=== PATIENT | male | born 1975 | race Caucasian/White ===

== ENCOUNTER 2020-04-21 06:16 | Outpatient (REF) | payer OTHER, SELFPAY ==
[2020-04-21 11:40] LABS: Alanine Aminotransferase 16 U/L (0-40); Albumin Level 4.2 g/dL (3.5-5.0); Alkaline Phosphatase 72 U/L (39-117); Anion Gap 12 (12-20); Aspartate Amino Transferase 15 U/L (5-37); Bilirubin Total 0.5 mg/dL (0.0-1.0); Blood Urea Nitrogen 19 mg/dL (9-16); Calcium 8.8 mg/dL (8.4-10.2); Carbon Dioxide 28 mmol/L (22-29); Chloride 105 mmol/L (96-108); Cholesterol 168 mg/dL; Estimated Glomerular Filt Rate > 60; Glucose Fasting 84 mg/dL (60-99); HDL Cholesterol 42 mg/dL; LDL Cholesterol Calculated 97 mg/dl; Potassium 4.8 mmol/l (3.3-5.1); Sodium 140 mmol/L (135-145); Total Protein 6.8 g/dL (6.5-8.0); Triglycerides 146 mg/dL
[2020-04-21 12:02] LABS: TSH reflex Free T4 0.73 mIU/mL (0.32-4.0)
== END 2020-04-21 06:17 | disposition home or self-care (01) ==
LOC: HO.HMGCLDS 06:16
PROVIDERS: PCP Nurse Practitioner Family; Visit Provider Nurse Practitioner Family
DX: Z00.00 Encounter for general adult medical examination without abnormal findings (principal); Z13.220 Encounter for screening for lipoid disorders; Z13.29 Encounter for screening for other suspected endocrine disorder
CPT/HCPCS: 80053; 80061; 84443

== ENCOUNTER 2021-04-30 08:41 | Outpatient (REF) | payer OTHER, SELFPAY ==
[2021-04-30 11:25] LABS: Appearance Urine CLEAR; Color Urine YELLOW; Glucose Urine UA NEG (NEG); Leukocyte Esterase Urine NEG (NEG); Nitrite Urine NEG (NEG); Specific Gravity - Urine 1.025 (1.005-1.025); Urine Blood NEG (NEG); Urine Ketones NEG (NEG); Urine Protein NEG (NEG-TRACE)
[2021-04-30 12:09] LABS: Alanine Aminotransferase 21 U/L (0-40); Albumin Level 4.4 g/dL (3.5-5.0); Alkaline Phosphatase 61 U/L (39-117); Anion Gap 11 (12-20); Aspartate Amino Transferase 21 U/L (5-37); Bilirubin Total 0.8 mg/dL (0.0-1.0); Blood Urea Nitrogen 13 mg/dL (9-16); Calcium 9.4 mg/dL (8.4-10.2); Carbon Dioxide 26 mmol/L (22-29); Chloride 107 mmol/L (96-108); Cholesterol 175 mg/dL; Estimated Glomerular Filt Rate > 60; Glucose Fasting 99 mg/dL (60-99); HDL Cholesterol 47 mg/dL; LDL Cholesterol Calculated 114 mg/dl; Potassium 4.4 mmol/L (3.3-5.1); Sodium 140 mmol/L (135-145); TSH reflex Free T4 1.51 uIU/mL (0.32-4.0); Total Protein 7.1 g/dL (6.5-8.0); Triglycerides 72 mg/dL
== END 2021-04-30 08:42 | disposition home or self-care (01) ==
LOC: HO.HMGCLDS 08:41
PROVIDERS: PCP Nurse Practitioner Family; Visit Provider Nurse Practitioner Family
DX: Z00.00 Encounter for general adult medical examination without abnormal findings (principal); Z13.29 Encounter for screening for other suspected endocrine disorder; Z13.220 Encounter for screening for lipoid disorders; Z23 Encounter for immunization
CPT/HCPCS: 36415; 80053; 80061; 81003; 84443

== ENCOUNTER 2021-11-28 09:17 | Outpatient (REF) | payer OTHER, SELFPAY ==
--- NOTE | ~2021-11-28 | XR_ITS ---
EXAMINATION: XR ABDOMEN KUB CLINICAL INDICATION: Constipation, unspecified COMPARISON: None TECHNIQUE: AP view of the abdomen. FINDINGS: The bowel gas pattern is nonobstructive. There is moderate right colonic fecal material but mild fecal material observed in the left colon. No appreciable abnormal calcifications. Pelvic phleboliths observed. There are minimal spondylitic changes of the lumbar spine. Sacrum intact. XR/XR KUB IMPRESSION: Nonobstructive bowel gas pattern. Moderate right colonic fecal material but mild left colonic fecal material noted.
[2021-11-28 11:28] LABS: MANUAL DIFF FLAG NO
[2021-11-28 11:34] LABS: Basophils Percent Auto 0.3 % (0-2); Hematocrit 38.3 % (42.0-52.0); Hemoglobin 13.4 g/dl (14.0-18.0); Imm Gran Abs Auto 0.11 X10*3/uL (0.00-0.03); Imm Gran Pct Auto 0.8 % (0.0-0.4); Lymphocytes Absolute Auto 0.8 X10*3/uL (1.2-4.9); Lymphocytes Percent Auto 5.7 % (20-40); Mean Corpuscular Hemoglobin 30.7 pg (27.0-33.0); Mean Corpuscular Volume 87.6 fL (80.0-98.0); Mean Platelet Volume 9.7 fL (9.4-12.4); Monocytes Absolute Auto 0.8 X10*3/uL (0.1-1.2); Monocytes Percent Auto 5.9 % (2-11); Neutrophils Absolute Auto 11.9 x10*3/uL (2.0-8.3); Neutrophils Percent Auto 87.3 % (45-73); Platelet Count 269 X10*3/uL (160-400); Red Blood Count 4.37 X10*6/uL (4.60-5.80); Red Cell Distribution Width 12.2 % (11.0-16.0); White Blood Count 13.6 X10*3/uL (4.8-10.8)
[2021-11-28 12:13] LABS: Alanine Aminotransferase 25 U/L (0-40); Albumin Level 4.3 g/dL (3.5-5.0); Alkaline Phosphatase 55 U/L (39-117); Anion Gap 13 (12-20); Aspartate Amino Transferase 19 U/L (5-37); Bilirubin Total 1.4 mg/dL (0.0-1.0); Blood Urea Nitrogen 10 mg/dL (9-16); Calcium 9.3 mg/dL (8.4-10.2); Carbon Dioxide 26 mmol/L (22-29); Chloride 101 mmol/L (96-108); Estimated Glomerular Filt Rate > 60; Glucose Random 141 mg/dL (60-115); Lipase 17 U/L (8-78); Potassium 3.8 mmol/L (3.3-5.1); Sodium 136 mmol/L (135-145)
[2021-11-28 12:32] LABS: Influenza A PCR NEGATIVE (Negative); Influenza B PCR NEGATIVE (Negative); Resp Syncy Virus RNA Qual PCR NEGATIVE (Negative); SARS COV2 PCR INHOUSE NEGATIVE (Negative)
== END 2021-11-28 09:18 | disposition home or self-care (01) ==
LOC: HO.HMGCX 09:17
PROVIDERS: PCP Nurse Practitioner Family; Visit Provider Physician Assistant
DX: R10.9 Unspecified abdominal pain (principal); R11.2 Nausea with vomiting, unspecified; K59.00 Constipation, unspecified; B34.9 Viral infection, unspecified; Z20.822 Contact with and (suspected) exposure to COVID-19
CPT/HCPCS: 0241U; 36415; 74018; 80053; 83690; 85025

== ENCOUNTER 2021-11-29 04:30 | Emergency (ER) | payer OTHER, SELFPAY ==
--- NOTE | ~2021-11-29 | CT_ITS ---
EXAMINATION: CT ABDOMEN AND PELVIS WITHOUT CONTRAST CLINICAL INFORMATION: Bilateral lower abdomen pain COMPARISON: None TECHNIQUE: Multidetector volumetric imaging was performed from the superior aspect of the liver through the pubic symphysis. Sagittal and coronal reformatted images were obtained on the technologist's workstation. This CT examination was performed using dose optimization techniques as appropriate, variously including the following: *Automated exposure control *Adjustment of mA and/or kV according to patient size (this includes techniques or standardized protocols for targeted exams where dose is matched to indication/reason for exam; i.e. extremities or head) *Use of iterative reconstruction technique DLP: 715 mGy-cm FINDINGS: LUNG BASES: The visualized lung bases are unremarkable. LIVER, GALLBLADDER, AND BILIARY TREE: The liver is normal in size, shape, and attenuation. No focal hepatic lesion or biliary ductal dilatation is identified. The gallbladder is unremarkable with no evidence of radiopaque gallstones, gallbladder wall thickening, or obvious pericholecystic inflammatory changes. PANCREAS: Unremarkable. SPLEEN: Enlarged, measuring 15.4 cm in the axial plane. Scattered calcified granulomas are noted. ADRENAL GLANDS: Unremarkable. KIDNEYS AND URETERS: The kidneys are normal in size, shape, and attenuation. Punctate calculus noted in the upper left kidney. No hydronephrosis, hydroureter, or obstructing calculi seen. No perinephric stranding. BLADDER: Minimally distended and grossly unremarkable. GASTROINTESTINAL TRACT: No evidence of bowel obstruction. There are diverticula in the descending and sigmoid colon. There is focal pericolonic inflammation adjacent to a diverticulum in the proximal sigmoid colon, most consistent with diverticulitis. No pericolonic abscess, free fluid, or free air identified. The appendix is unremarkable. ABDOMINAL WALL: No significant hernia is appreciated. LYMPH NODES: Normal. VASCULAR: Unremarkable. PELVIC VISCERA: Unremarkable. OSSEOUS STRUCTURES: Mild endplate osteophytes noted in the spine. Bilateral L5 pars defects. CT/CT abdomen pelvis wo con IMPRESSION: 1. Diverticulitis of the proximal sigmoid colon. Correlation with recent or followup colonoscopy is advised to exclude an underlying mass lesion. 2. Splenomegaly.
--- NOTE | 2021-11-29 04:50 | ECG_ITS ---
Test Reason : ABD PAIN Blood Pressure : / mmHG Vent. Rate : 094 BPM Atrial Rate : 094 BPM P-R Int : 128 ms QRS Dur : 086 ms QT Int : 360 ms P-R-T Axes : 063 078 039 degrees QTc Int : 450 ms Normal sinus rhythm Normal ECG No previous ECGs available Referred By: Alexandrea Schuster Electronically Signed By:Sergey Ma
[2021-11-29 04:51] VITALS: BP 141/91; PULSE 104; RESP 18; TEMP 36.4; O2SAT 96; BMI 30.2
[2021-11-29 05:06] LABS: Basophils Percent Auto 0.3 % (0-2); Eosinophils Percent Auto 0.2 % (0-4); Hematocrit 41.2 % (42.0-52.0); Hemoglobin 14.3 g/dl (14.0-18.0); Imm Gran Abs Auto 0.04 X10*3/uL (0.00-0.03); Imm Gran Pct Auto 0.5 % (0.0-0.4); Lymphocytes Percent Auto 11.8 % (20-40); MANUAL DIFF FLAG NO; Mean Corpuscular HGB Conc 34.7 g/dl (31.0-36.0); Mean Corpuscular Hemoglobin 30.8 pg (27.0-33.0); Mean Corpuscular Volume 88.8 fL (80.0-98.0); Mean Platelet Volume 8.8 fL (9.4-12.4); Monocytes Absolute Auto 0.6 X10*3/uL (0.1-1.2); Monocytes Percent Auto 7.3 % (2-11); Neutrophils Percent Auto 79.9 % (45-73); Platelet Count 270 X10*3/uL (160-400); Red Blood Count 4.64 X10*6/uL (4.60-5.80); Red Cell Distribution Width 12.7 % (11.0-16.0); White Blood Count 8.7 X10*3/uL (4.8-10.8)
[2021-11-29 05:25] LABS: Troponin-I High Sensitivity < 3.5 ng/L (<3.5-35.0)
[2021-11-29 05:26] LABS: Alanine Aminotransferase 29 U/L (0-40); Albumin Level 4.4 g/dL (3.5-5.0); Alkaline Phosphatase 61 U/L (39-117); Anion Gap 12 (12-20); Aspartate Amino Transferase 24 U/L (5-37); Bilirubin Direct 0.5 mg/dL (0.0-0.5); Bilirubin Total 1.2 mg/dL (0.0-1.0); Blood Urea Nitrogen 15 mg/dL (9-16); Calcium 9.4 mg/dL (8.4-10.2); Carbon Dioxide 27 mmol/L (22-29); Chloride 104 mmol/L (96-108); Creatinine Clr Calc Pharmacy 92.2; Estimated Glomerular Filt Rate > 60; Glucose Random 133 mg/dL (60-115); Lipase 21 U/L (8-78); Potassium 4.1 mmol/L (3.3-5.1); Sodium 139 mmol/L (135-145); Total Protein 7.4 g/dL (6.5-8.0)
--- NOTE | 2021-11-29 05:49 | ED_ITS ---
HPI - Abdominal Pain General Chief Complaint: Abdominal Pain Stated Complaint: stomach pain sent by pcp Time Seen by Provider: 11/29/21 04:48 Source: patient Mode of arrival: ambulatory Limitations: no limitations History of Present Illness HPI narrative: Patient comes to emergency room complaining of 1 week of intermittent abdominal pain, nausea, vomiting and constipation. Patient complaining of intermittent ch ills, no fever. Patient went to a walk-in clinic yesterday, was told that his white blood cell count was elevated, still having left lower quadrant pain, was instructed to come to the emergency room for further evaluation. At this time, patient states that he feels fairly well, but if he pushes his specially on the left lower quadrant of his abdomen it hurts quite a bit. Related Data Previous Rx's Medication Instructions Recorded acetaminophen 650 mg 650 mg PO Q8H PRN pain #20 tabs 11/29/21 tablet,extended release ciprofloxacin HCl 500 mg tablet 500 mg PO BID #20 tabs 11/29/21 metronidazole 250 mg tablet 250 mg PO BID #20 tabs 11/29/21 Allergies Allergy/AdvReac Type Severity Reaction Status Date / Time No Known Allergies Allergy Verified 11/28/21 08:55 [No Known Allergies*] Review of Systems Review of Systems Constitutional : No Weight loss, No Fever, No Chills, No Night Sweats, No Fatigue, No Malaise ENT/Mouth : No Hearing loss, No Ear Pain, No Nasal Congestion, No Sinus Pain, No Hoarseness, No sore throat, No Rhinorrhea, No Swallowing Difficulty Eyes: No Eye Pain, No Swelling, No Redness, No Foreign Body, No Discharge, No Vision Changes Cardiovascular : No Chest Pain, No SOB, No Dyspnea on Exertion, No Orthopnea, No Edema, No Palpitations Respiratory : No Cough, No Sputum, No Wheezing, No Smoke Exposure, No Dyspnea Gastrointestinal : Complaining of nausea and vomiting couple of days ago, no diarrhea, complaining of constipation, intermittent left lower quadrant pain. Genitourinary : no irregular bleeding, No Dysuria, No Urinary Frequency, No Hematuria, No Urinary Incontinence, No Urgency, No Flank Pain, No Urinary Flow Changes, No Hesitancy Musculoskeletal : No joint pain, No Myalgias, No Joint Swelling Skin : No Skin Lesions, No rash Neuro : No Weakness, No Numbness, No Paresthesias, No Loss of Consciousness, No Dizziness, No Headache Psych : No Anxiety/Panic, No Depression, No SI/HI/AH/VH, No Social Issues, Heme/Lymph: No Bruising, No Bleeding,No Lymphadenopathy Endocrine : No Polyuria, No Polydipsia, No Temperature Intolerance [facility] Past Medical History Surgical History History of torn meniscus of right knee Family History Family History Father No problems noted. Mother No problems noted. Brother No problems noted. Brother No problems noted. Sister No problems noted. Sister No problems noted. Son No problems noted. Daughter No problems noted. Maternal Grandfather Unknown family medical history Maternal Grandmother Unknown family medical history Paternal Grandfather Unknown family medical history Paternal Grandmother Unknown family medical history Social History Social History Housing: House Alcohol intake: former Patient Tobacco Use Status: Never used Tobacco e-Cigarette/Vaping Use: Never Used Advance Directives: No Current occupational status: employed Physical Exam ED Vital Signs: Vital Signs - 24 hr 11/29/21 04:51 Temperature 97.6 F Pulse Rate 104 H Respiratory Rate 18 Blood Pressure 141/91 H Pulse Oximetry 96 Oxygen Delivery Method Room Air BMI result Body Mass Index 30.2 Const Other: Appearance: Alert. Oriented X3. No acute distress. Well-appearing Eyes: Pupils equal, round and reactive to light. ENT: Pharynx normal. Neck: Normal inspection. Neck supple. No lymph nodes noted. No crepitus CVS: Normal heart rate and rhythm. Pulses normal. Normal S1 and S2 Respiratory: No respiratory distress. Breath sounds normal. No Wheezing. No rales Abdomen: Soft , nondistended, mildly tender in the left lower quadrant Skin: Skin warm and dry. Normal skin color. Normal skin turgor. Extremities: No lower extremity edema. No Lacerations. No Rash Neuro: Oriented X 3. No motor deficit. No sensory deficit. Moving all extremities. No slurred speech. CN 2 through 12 grossly intact Psych: calm, cooperative, normal affect Course Course Course Narrative: Patient had a KUB yesterday, was unremarkable. Patient's white blood cell count yesterday was 13.6, today 8.7 without any treatment. Likely reactive leukocytosis. Today the Troponin negative, EKG negative. CT scan pending. I discussed the CT scan with the patient, patient does have diverticulitis. Patient has minimal pain at this time, patient can go home, given the 1st dose of levofloxacin and metronidazole p.o.. I discussed with patient that if he has any increased abdominal pain, he needs to return to the emergency room. MDM - Abdominal Pain Lab Data Result diagrams: 11/29/21 05:02 11/29/21 05:02 Labs: Lab Results 11/29/21 11/29/21 11/29/21 Range/Units 05:02 05:02 05:02 WBC 8.7 (4.8-10.8) X10*3/uL RBC 4.64 (4.60-5.80) X10*6/uL Hgb 14.3 (14.0-18.0) g/dl Hct 41.2 L (42.0-52.0) % MCV 88.8 (80.0-98.0) fL MCH 30.8 (27.0-33.0) pg MCHC 34.7 (31.0-36.0) g/dl RDW 12.7 (11.0-16.0) % Plt Count 270 (160-400) X10*3/uL MPV 8.8 L (9.4-12.4) fL Immature Gran % (Auto) 0.5 H (0.0-0.4) % Neut % (Auto) 79.9 H (45-73) % Lymph % (Auto) 11.8 L (20-40) % [place] % (Auto) 7.3 (2-11) % Eos % (Auto) 0.2 (0-4) % Baso % (Auto) 0.3 (0-2) % Lymph # (Auto) 1.0 L (1.2-4.9) X10*3/uL [place] # (Auto) 0.6 (0.1-1.2) X10*3/uL Eos # (Auto) 0.0 (0.0-0.4) X10*3/uL Baso # (Auto) 0.0 (0.0-0.2) X10*3/uL Abs Immat Gran (auto) 0.04 H (0.00-0.03) X10*3/uL Absolute Neuts (auto) 7.0 (2.0-8.3) x10*3/uL Absolute Nucleated RBC 0.000 (0.0-0.012) X10*3/uL Nucleated RBC % (auto) 0.0 (0.0-0.2) /100WBC Sodium 139 (135-145) mmol/L Potassium 4.1 (3.3-5.1) mmol/L Chloride 104 (96-108) mmol/L Carbon Dioxide 27 (22-29) mmol/L Anion Gap 12 (12-20) BUN 15 (9-16) mg/dL Creatinine 1.16 (0.5-1.4) mg/dL Estim Creat Clear Calc 92.2 Estimated GFR > 60 Random Glucose 133 H (60-115) mg/dL Calcium 9.4 (8.4-10.2) mg/dL Total Bilirubin 1.2 H (0.0-1.0) mg/dL Direct Bilirubin 0.5 (0.0-0.5) mg/dL AST 24 (5-37) U/L ALT 29 (0-40) U/L Alkaline Phosphatase 61 (39-117) U/L Troponin I High Sens < 3.5 (<3.5-35.0) ng/L Total Protein 7.4 (6.5-8.0) g/dL Albumin 4.4 (3.5-5.0) g/dL Lipase 21 (8-78) U/L Imaging Data CT scan - abdomen: Radiologist's impression: FINDINGS: LUNG BASES: The visualized lung bases are unremarkable.? LIVER, GALLBLADDER, AND BILIARY TREE: The liver is normal in size, shape, and attenuation. No focal hepatic lesion or biliary ductal dilatation is identified. The gallbladder is unremarkable with no evidence of radiopaque gallstones, gallbladder wall thickening, or obvious pericholecystic inflammatory changes.? PANCREAS: Unremarkable.? SPLEEN: Enlarged, measuring 15.4 cm in the axial plane. Scattered calcified granulomas are noted.? ADRENAL GLANDS: Unremarkable.? KIDNEYS AND URETERS: The kidneys are normal in size, shape, and attenuation. Punctate calculus noted in the upper left kidney. No hydronephrosis, hydroureter, or obstructing calculi seen. No perinephric stranding. BLADDER: Minimally distended and grossly unremarkable.? GASTROINTESTINAL TRACT: No evidence of bowel obstruction. There are diverticula in the descending and sigmoid colon. There is focal pericolonic inflammation adjacent to a diverticulum in the proximal sigmoid colon, most consistent with diverticulitis. No pericolonic abscess, free fluid, or free air identified. The appendix is unremarkable. ABDOMINAL WALL: No significant hernia is appreciated.? LYMPH NODES: Normal. VASCULAR: Unremarkable. PELVIC VISCERA: Unremarkable.? OSSEOUS STRUCTURES: Mild endplate osteophytes noted in the spine. Bilateral L5 pars defects.? CT/CT abdomen pelvis wo con IMPRESSION: 1.? Diverticulitis of the proximal sigmoid colon. Correlation with recent or followup colonoscopy is advised to exclude an underlying mass lesion.? 2.? Splenomegaly. Discharge Plan Discharge Clinical Impression: Diverticulitis, Constipation Patient Disposition: Home, Self-Care Instructions: Diverticulitis (ED), Constipation (ED), Diverticulitis Diet (ED) Additional Instructions: Please follow-up with your primary care physician tomorrow. If you have any worsening or new symptoms, please return to the emergency room or call 911 Prescriptions: New ciprofloxacin HCl 500 mg tablet 500 mg PO BID Qty: 20 0RF metronidazole 250 mg tablet 250 mg PO BID Qty: 20 0RF acetaminophen 650 mg tablet extended release 650 mg PO Q8H PRN (Reason: pain) Qty: 20 0RF
[2021-11-29 06:21] LABS: Appearance Urine HAZY; Color Urine YELLOW; Glucose Urine UA NEG (NEG); Leukocyte Esterase Urine NEG (NEG); Nitrite Urine NEG (NEG); PH 5.5 (5.0-8.0); UACC Culture Trigger NO; Urine Blood TRACE (NEG); Urine Ketones NEG (NEG); Urine Protein TRACE MG/DL (NEG-TRACE)
[2021-11-29 06:36] LABS: Mucus Urine TRACE /LPF; RBC Urine 0-2 /HPF (0); WBC Urine 0-2 /HPF (0-4)
[2021-11-29] MEDS: metroNIDAZOLE 500 MG TABLET PO (06:52)
[2021-11-29] MEDS: levoFLOXacin 500 MG TABLET PO (06:52)
--- NOTE | 2021-11-29 06:54 | PC.NURSE ---
pt a&o, no sob or chest pain. no n.v . pt medicated per mar at discharge . Reviewed discharge instructions with pt. pt verbalized understanding.
== END 2021-11-29 06:55 | disposition home or self-care (01) ==
PROVIDERS: Emergency Provider Emergency Medicine
DX: K57.32 Diverticulitis of large intestine without perforation or abscess without bleeding (principal); K59.00 Constipation, unspecified; R10.32 Left lower quadrant pain
CPT/HCPCS: 36415; 74176; 80048; 80076; 81001; 83690; 84484; 85025; 93005; 99282; 99284

== ENCOUNTER 2022-04-24 08:00 | Outpatient (REF) | payer OTHER, SELFPAY ==
[2022-04-24 11:18] LABS: Appearance Urine Clear; Color Urine Yellow; Glucose Urine UA Negative (Negative); Leukocyte Esterase Urine Negative (Negative); Nitrite Urine Negative (Negative); Urine Blood Negative (Negative); Urine Ketones Negative (Negative); Urine Protein Negative (Neg-Trace)
[2022-04-24 14:22] LABS: MANUAL DIFF FLAG NO
[2022-04-24 14:29] LABS: Basophils Absolute Auto 0.1 X10*3/uL (0.0-0.2); Basophils Percent Auto 0.9 % (0-2); Eosinophils Absolute Auto 0.1 X10*3/uL (0.0-0.4); Eosinophils Percent Auto 1.1 % (0-4); Hematocrit 40.6 % (42.0-52.0); Hemoglobin 13.9 g/dl (14.0-18.0); Imm Gran Abs Auto 0.01 X10*3/uL (0.00-0.03); Imm Gran Pct Auto 0.2 % (0.0-0.4); Lymphocytes Absolute Auto 1.7 X10*3/uL (1.2-4.9); Lymphocytes Percent Auto 31.6 % (20-40); Mean Corpuscular HGB Conc 34.2 g/dl (31.0-36.0); Mean Corpuscular Hemoglobin 31.1 pg (27.0-33.0); Mean Corpuscular Volume 90.8 fL (80.0-98.0); Mean Platelet Volume 10.1 fL (9.4-12.4); Monocytes Absolute Auto 0.4 X10*3/uL (0.1-1.2); Monocytes Percent Auto 7.7 % (2-11); Neutrophils Absolute Auto 3.1 x10*3/uL (2.0-8.3); Neutrophils Percent Auto 58.5 % (45-73); Platelet Count 234 X10*3/uL (160-400); Red Blood Count 4.47 X10*6/uL (4.60-5.80); Red Cell Distribution Width 12.7 % (11.0-16.0); White Blood Count 5.3 X10*3/uL (4.8-10.8)
[2022-04-24 15:38] LABS: Alanine Aminotransferase 16 U/L (0-40); Albumin Level 4.4 g/dL (3.5-5.0); Alkaline Phosphatase 52 U/L (39-117); Anion Gap 14 (12-20); Aspartate Amino Transferase 21 U/L (5-37); Bilirubin Total 0.7 mg/dL (0.0-1.0); Blood Urea Nitrogen 17 mg/dL (9-16); Calcium 9.7 mg/dL (8.4-10.2); Carbon Dioxide 24 mmol/L (22-29); Chloride 109 mmol/L (96-108); Cholesterol 168 mg/dL; Estimated Glomerular Filt Rate > 60; Glucose Fasting 102 mg/dL (60-99); HDL Cholesterol 41 mg/dL; LDL Cholesterol Calculated 115 mg/dl; Potassium 4.3 mmol/L (3.3-5.1); Prostate Specific Antigen Scr 0.58 ng/mL (<0.05-4.0); Sodium 143 mmol/L (135-145); Total Protein 6.8 g/dL (6.5-8.0); Triglycerides 64 mg/dL
== END 2022-04-24 08:01 | disposition home or self-care (01) ==
LOC: HO.HMGCLDS 08:00
PROVIDERS: PCP Nurse Practitioner Family; Visit Provider Nurse Practitioner Family
DX: Z00.00 Encounter for general adult medical examination without abnormal findings (principal); N53.19 Other ejaculatory dysfunction; Z12.5 Encounter for screening for malignant neoplasm of prostate
CPT/HCPCS: 36415; 80053; 80061; 81003; 84153; 84443; 85025

== ENCOUNTER 2022-05-10 15:13 | Outpatient (REF) | payer OTHER, SELFPAY ==
--- NOTE | ~2022-05-10 | US_ITS ---
EXAMINATION: US SCROTUM CLINICAL INFORMATION: Other ejaculatory dysfunction. COMPARISON: Ultrasound scrotum 08/21/2016. TECHNIQUE: A sonogram of the scrotum was performed assessing chaney-scale appearance and color Doppler flow. Spectral Doppler analysis of the arterial and venous flow were performed in the testes bilaterally. FINDINGS: RIGHT: Right testicle measures 4.7 x 2.1 x 2.7 cm, volume 14.1 mL. No focal testicular parenchymal lesions are visualized. Spectral Doppler analysis of the arterial and venous flow is normal in the right testis. Right epididymal head is slightly prominent No right hydrocele or varicocele is seen. Right epididymal Doppler flow is increased. LEFT: Left testicle measures 4.8 x 2.2 x 3.2 cm, volume 17.6 mL. No focal testicular parenchymal lesions are visualized. Spectral Doppler analysis of the arterial and venous flow is normal in the left testis. Left epididymal head is normal in size. No left hydrocele or varicocele is seen. Left epididymal Doppler flow is normal. US/US scrotum IMPRESSION: 1. Slightly prominent right epididymis with increased vascularity suggestive of epididymitis. 2. Bilateral testes and the left epididymis is unremarkable.
== END 2022-05-10 15:14 | disposition home or self-care (01) ==
LOC: HO.HMGCX 15:13
PROVIDERS: PCP Nurse Practitioner Family; Visit Provider Nurse Practitioner Family
DX: N53.19 Other ejaculatory dysfunction (principal)
CPT/HCPCS: 76870

== ENCOUNTER → 2022-06-11 10:57 | Outpatient (BNVA) | payer OTHER, SELFPAY | PROVIDERS: PCP Nurse Practitioner Family; Visit Provider Internal Medicine | DX: Z13.89 Encounter for screening for other disorder (principal) ==

== ENCOUNTER 2022-08-15 11:32 | Day surgery (SDC) | payer OTHER, SELFPAY ==
[2022-08-12 11:46] VITALS: BMI 31.4
--- NOTE | 2022-08-15 12:05 | MHC.SHP ---
Pre-Procedural Eval Section A Date of Service: 08/15/22 Section B Chief Complaint: Positive cologuard Relevant Family History (Specify if Yes): No Relevant Social History: None Present Medications: see Short Stay Collaborative assessment Medical History: No relevant PMH History of Previous Operations: No relevant previous surgery Allergies: Allergies Allergy/AdvReac Type Severity Reaction Status Date / Time No Known Allergies Allergy Verified 06/11/22 11:06 [No Known Allergies*] Review of Systems Review of Systems Comment: 10 point ROS negative Exam Exam Comment: Gen appear: No acute distress HEENT: no icterus Chest: No overt resp distress Abd: soft, nontender, nondistended Psych: Stable affect, answering questions appropriately Neuro: A/Ox3 noted to move all extremities spontaneously Ext: no peripheral edema Plan Diagnosis/Plan: Unchanged I have reviewed the history and physical and performed a pertinent physical examination on my patient. No changes have occurred unless specified. Time Spent With Patient Time: Total time managing care of this patient today ____ minutes.
--- NOTE | 2022-08-15 12:11 | P.OP_ITS ---
Operative Note Operative Note Date of Service: 08/15/22 Narrative: Procedure: Colonoscopy Indication: Positive cologuard Endoscopist: Hina Sehffield MD Anesthesia Provider: Dr Marybel Quiroz Anesthesia type: MAC Instrument: Olympus [id number]-[id number] Consent: Indication, risks vs benefits, and alternatives were discussed with the patient who gave written informed consent to proceed. EKG, pulse, pulse oximetry and blood pressure were monitored throughout the procedure. Please see anesthesia flowsheet. Procedure: The patient was brought to the procedure room and placed in the left lateral decubitus position. IV medications were administered by the anesthesia provider in attendance. A digital rectal exam was performed which was normal. A distal attachment cap was affixed to the tip of the scope and the colonoscope was then inserted through the anus and advanced through the colon to the cecum at 70 cm. Appendiceal orifice and ileocecal valve were identified. Mucosa was carefully examined under high definition white light as the instrument was slowly withdrawn in a retrograde panoramic fashion. Retroflexion was performed in ascending colon and rectum. The procedure was not difficult. There were no immediate obvious complications. The quality of the prep was BBPS: 3+2+3 = adequate Withdrawal time 10 minutes. Limitations: No limitations. Findings: Mucosa: Normal to cecum. Protruding lesions: * 1 sessile polyp of size 8 mm in trasnverse colon. Cold snare polypectomy was performed. The polyp was completely removed and retrieved. * Medium internal hemorrhoids without stigmata of recent bleeding. Excavated lesions: * Multiple small and large mouthed diverticula in whole colon. Impression: 1. Normal colon mucosa 2. Total of 1 polyp removed from transverse colon. 3. Internal hemorrhoids 4. Diverticulosis Recommendations: - Follow path results. - Repeat colonoscopy in 7-10 years if polyp is an adenoma.
[2022-08-15 12:12] VITALS: BP 122/77; PULSE 76; RESP 18; TEMP 36.3; O2SAT 96; BMI 30.8
[2022-08-15 12:16] VITALS: BMI 30.8
[2022-08-15] MEDS: Lactated Ringers 1,000 ML 50 ML IVCONT (12:38)
--- NOTE | 2022-08-15 13:11 | HO.ANESPROP2 ---
[facility] Active Problems Active Problems: All Active Problems (Updated 06/11/22 @ 11:28 by Hina Sheffield MD) Anemia (Acute) Positive colorectal cancer screening using Cologuard test (Acute) Ejaculatory disorder (Acute) Physical exam (Acute) Family History Family History Father No problems noted. Mother No problems noted. Brother No problems noted. Brother No problems noted. Sister No problems noted. Sister No problems noted. Son No problems noted. Daughter No problems noted. Maternal Grandfather Unknown family medical history Maternal Grandmother Unknown family medical history Paternal Grandfather Unknown family medical history Paternal Grandmother Unknown family medical history Surgical History Surgical History History of torn meniscus of right knee Social History Social History Housing: House Alcohol intake: former Patient Tobacco Use Status: Never used Tobacco e-Cigarette/Vaping Use: Never Used Use of substances other than those prescribed or required for medical reasons: Yes Substance Use Type Other:: thc oil Are you DNR?: No Advance Directives: No Advance Directives Information Provided: Yes Current occupational status: employed Meds Allergies Allergy/AdvReac Type Severity Reaction Status Date / Time No Known Allergies Allergy Verified 06/11/22 11:06 [No Known Allergies*] Active Medications: Current Medications Lactated Ringer's (Lr) 1,000 mls @ 50 mls/hr IVCONT .Q20H MICHELLE Last Admin: 08/15/22 12:38 Dose: 50 mls/hr Exam Exam Date and Time: August 15, 2022 1311 Height,Weight and Vital Signs: Height 5 ft 10 in Weight 97.522 kg Last Vital Signs Temp 97.3 F 08/15/22 12:12 Pulse 76 08/15/22 12:12 Resp 18 08/15/22 12:12 BP 122/77 08/15/22 12:12 Pulse Ox 96 08/15/22 12:12 O2 Del Method Room Air 08/15/22 12:12 Airway Mallampati Class: I TM Dist: >3cm Neck ROM: Full Heart: RRR Lungs: CTA Assessment and Plan Final Anesthetic Review ASA Class: II Final Preanesthetic Review: Meds/Allgs Chart Reviewed, Consent Obtained/Reviewed and Anes Risks/Benef Reviewed Patient Risk: Low Procedure Risk: Low Anesthetic Plan Anesthetic Plan: MAC: Disposition: Standard PACU
[2022-08-15 13:34] VITALS: BP 109/69; PULSE 77; RESP 16; TEMP 36.6; O2SAT 96
[2022-08-15 13:49] VITALS: BP 120/80; PULSE 82; RESP 18; TEMP 37.1; O2SAT 95
--- NOTE | 2022-08-15 14:10 | HO.POSTANES ---
Post Anesthesia Evaluation Post Anesthesia Evaluation Vital Signs: Vital Signs Temp Pulse Resp BP Pulse Ox O2 Del Method 08/15/22 13:49 98.8 F 82 18 120/80 95 Room Air 08/15/22 13:34 98 F 77 16 109/69 96 Room Air 08/15/22 12:12 97.3 F 76 18 122/77 96 Room Air Anesthesia: Monitored Pain Control: Satisfactory Nausea/Vomiting: None Hydration: Adequate Anesthesia-Related Issues: No Anes. Related Issues
== END 2022-08-15 14:48 | disposition home or self-care (01) ==
PROVIDERS: PCP Nurse Practitioner Family; Visit Provider Internal Medicine
PROC: 0DJD8ZZ Inspection of Lower Intestinal Tract, Via Natural or Artificial Opening Endoscopic (ICD-10-PCS; CPT 45378; principal; 2022-08-15 13:30)
DX: R19.5 Other fecal abnormalities (principal); D64.9 Anemia, unspecified; D12.3 Benign neoplasm of transverse colon; K57.30 Diverticulosis of large intestine without perforation or abscess without bleeding; K64.8 Other hemorrhoids
CPT/HCPCS: 45385; 88305

== ENCOUNTER 2022-08-28 15:43 | Outpatient (AMB) | payer OTHER, SELFPAY ==
--- NOTE | 2022-08-28 15:47 | MHC.OFFVIS ---
Intake Intake Visit Reasons: ejaculatory dysfunction Intake Note: Previous Patient in Past present for Ejaculatory Dysfunction Seen Dr Moctezuma in 2019 for Vasectomy Allergies No Known Allergies [No Known Allergies*] Allergy (Verified 10/23/22 08:22) Medication List - Last Reconciled 08/28/22 by Robert Moctezuma MD acetaminophen ER 650 mg PO Q8H PRN sildenafil 100 mg PO ONCE PRN 30 days HPI HPI Comments History of Present Illness Details [place].? He is a patient of Dr. Patricio.? He seen for following urologic conditions - erectile dysfunction Progressive erectile dysfunction, associated ejaculatory disorder Erectile dysfunction Prior therapy Progressive Ejaculatory disorder Trial sildenafil 100 mg on demand PFSH Surgical History History of torn meniscus of right knee Family History Father No problems noted. Mother No problems noted. Brother No problems noted. Brother No problems noted. Sister No problems noted. Sister No problems noted. Son No problems noted. Daughter No problems noted. Maternal Grandfather Unknown family medical history Maternal Grandmother Unknown family medical history Paternal Grandfather Unknown family medical history Paternal Grandmother Unknown family medical history Social History Housing: House Alcohol intake: former Patient Tobacco Use Status: Never used Tobacco e-Cigarette/Vaping Use: Never Used Current occupational status: employed Cognitive needs: No Hearing needs: No Vision needs: No Review of Systems Const Denies chills and Denies fever(s) Card Reports no additional complaints and Denies syncope Resp Denies cough GI Denies abdominal pain and Denies heartburn Reports as per HPI and Denies change in libido Neuro Denies syncope Psych Denies change in libido Endo Denies change in libido Physical Exam Const General: cooperative, healthy appearing, comfortable and no acute distress Orientation/consciousness: patient oriented x3 HEENT Face and sinus: Yes normal facial exam Mouth: moist mucous membranes Neck Neck: Yes normal visual inspection, Yes full ROM and Yes trachea midline Chest Chest palpation & inspection: normal inspection of the chest Resp Effort & Inspection: normal respiratory effort, able to speak in complete sentences and no respiratory distress GI Inspection: Yes normal to inspection Back/Spine/Pelvis Cervical Spine: normal cervical lordosis Thoracic/Lumbar Spine: thoracic and lumbar spine normal to inspection Skin General skin exam: no rashes or lesions noted Neuro General: patient oriented x3, gait normal, tone normal and moves all extremities Extrem General: Yes normal to inspection and Yes capillary refill normal Assessment & Plan Assessment & Plan (1) Erectile dysfunction: Code(s): N52.9 - Male erectile dysfunction, unspecified Plan Trial on demand sildenafil Medications: New sildenafil administer 60 minutes before intended activity 100 mg PO ONCE PRN 30 tabs 0RF sexual activity 30 days N52.9 - Male erectile dysfunction, unspecified Patient Instructions: Imaging studies, laboratory and physical exam results were discussed and reviewed in detail. No major barriers to patient understanding were identified. An opportunity to ask questions regarding the treatment plan was provided. All questions were answered. The patient expressed understanding and agreement with the above treatment plan. The patient is aware they should contact our office by phone for worsening of their current condition or the appearance of new urologic symptoms. Compliance is encouraged with any medications and followup testing that is ordered. It is a privilege to participate in the urologic care of your patient. If you have any questions or concerns regarding treatment for the above conditions, or other urologic issues, please do not hesitate to contact me. The office telephone contact is [phone]. This note is constructed using voice recognition software. While every effort has been made to ensure accuracy riveter pneumatic errors may have been included. Yours sincerely, Dr Robert Moctezuma MD, [facility] - Urology Providers of Expert, Compassionate Care for the Genitourinary System Coding Level of Care Code New Pt Level 4 (86743) Diagnoses Erectile dysfunction N52.9
== END 2022-08-28 16:13 | disposition home or self-care (01) ==
LOC: HO.HUSH 15:43
PROVIDERS: PCP Nurse Practitioner Family; Visit Provider Urology
DX: N52.9 Male erectile dysfunction, unspecified (principal)
CPT/HCPCS: 99204

== ENCOUNTER → 2022-08-28 15:43 | Outpatient (BNVA) | payer OTHER, SELFPAY | PROVIDERS: PCP Nurse Practitioner Family; Visit Provider Urology | DX: Z13.89 Encounter for screening for other disorder (principal) ==

== ENCOUNTER 2022-10-23 09:18 | Outpatient (REF) | payer OTHER, SELFPAY ==
--- NOTE | ~2022-10-23 | XR_ITS ---
EXAMINATION: XR CHEST CLINICAL INFORMATION: Reason for Exam M54.9 - Dorsalgia, unspecified COMPARISON: None TECHNIQUE: 2 views of the chest FINDINGS: Lines and tubes: None. Clear lungs. No pleural effusion. No pneumothorax. Normal cardiomediastinal silhouette. XR/XR chest 2V IMPRESSION: * Clear lungs.
[2022-10-23 11:51] LABS: D Dimer High Sensitivity < 150 NG/ML
== END 2022-10-23 09:19 | disposition home or self-care (01) ==
LOC: HO.HMGCX 09:18
PROVIDERS: Absent Provider Internal Medicine; PCP Nurse Practitioner Family; Visit Provider Nurse Practitioner Family
DX: R07.89 Other chest pain (principal); M54.9 Dorsalgia, unspecified
CPT/HCPCS: 36415; 71046; 85379

== ENCOUNTER → 2022-11-06 07:50 | Outpatient (REF) | payer OTHER, SELFPAY ==
--- NOTE | 2022-11-06 07:53 | CA_ITS ---
Transthoracic Echocardiogram Patient (Last, First, Middle): Donn Holly, Gender: Male Date of : 1975 Age: 47 Procedure Date: 11/06/2022 Procedure Type: Transthoracic Echocardiogram Location: OP Height: 177.8 cm Weight: 99.79 kg BSA: 2.17 m2 Heart Rate: bpm BP: 110 / 80 mmHg Fiber Technician: TO Referring MD: Blu Ocampo [facility] [employer] Supervisor: Cheko Hernandez MD Symptoms: R07.9 - Chest pain, unspecified Study Quality: Adequate ECG Rhythm: Sinus Conclusions: - Normal study Findings Left Ventricle Normal left ventricular size, thickness, and systolic function. The visually estimated ejection fraction is between 55-60%. Spectral Doppler is indicative of a normal filling pattern. Peak GLS is -18.4%, within normal limits. Right Ventricle Normal right ventricular cavity size and systolic function. Atria Both atria are normal in size. There is a mobile atrial septum noted. There is no evidence of interatrial shunt. Aortic Valve Normal aortic valve structure and function. There is no aortic valve stenosis. There is no aortic valve regurgitation. Mitral Valve Normal mitral valve structure and function. There is trace mitral valve regurgitation. There is no mitral valve stenosis. Pulmonic Valve The pulmonic valve is likely normal. Tricuspid Valve Normal tricuspid valve structure. There is trace tricuspid valve regurgitation. The right ventricular systolic pressure is normal. The right ventricular systolic pressure is 20 mmHg. Normal right atrial pressure. There is no evidence of pulmonary hypertension. Great Vessels All visible segments of the aorta are normal in size. The pulmonary artery was not well visualized. Venous The inferior vena cava is normal in size and collapses greater than 50% with inspiration. Pericardium/Pleural There is no evidence of pericardial effusion. Prior Study Comparison No prior study available for comparison. Measurements 2D Linear Measurements IVSd: 1.11 0.6-0.9/0.6-1.0 cm LVIDd: 5.27 3.9-5.3/4.2-5.9 cm LVIDd Index: 2.43 2.4-3.2/2.2-3.1 cm/m2 LVIDs: 3.55 2.0-3.6 cm LVPWd: 0.87 0.7-1.1 cm LA Diam: 3.50 2.7-3.8/3.0-4.0 cm LAIDs Index: 1.61 1.5-2.3 cm/m2 LV Mass: 243.94 67-162/88-224 g LV Mass Index: 112.41 43-95/49-115 g/m2 LVOT Diam: 2.60 3.0+(-)1.3 cm 2D Systolic Function EF 4C: 56.40 >55% EF 2C: 57.80 >55% EF BiP: 56.50 >55% Mitral Valve MV Pk E: 0.50 MV PK A: 0.41 MV Decel Time: 241.00 E/A: 1.20 E'Lateral: 11.50 E'Medial: 8.05 E/E' Med: 6.20 E/E' Lat: 4.30 PHT: 66.00 MVA PHT: 3.33 Decel [place]: 2.24 Aortic Valve AoV Pk Tao: 1.36 AoV Mn Tao: 0.97 AoV VTI: 0.31 AoV Pk Grad: 7.00 Aov Mn Grad: 4.00 DEVENDRA Cont.VTI: 3.48 LVOT LVOT Pk Tao: 0.94 LVOT Mn Tao: 0.62 LVOT VTI: 0.20 LVOT Pk Grad: 4.00 LVOT Mn Grad: 2.00 LVOT Diam: 2.60 LVOT Area: 5.31 Diastolic Function MV Pk E: 0.50 MV Pk A: 0.41 E/A: 1.20 E'Medial: 8.05 E/E' Med: 6.20 E' Laterial: 11.50 E/E' Lat: 4.30 Right Ventricle TAPSE (mm): 23.90 TVS' Tao: 10.90 Tricuspid Valve TR Pk Tao: 2.06 TR Pk Grad: 17.00 RA Press: 3.00 RVSP: 20.00 Great Vessels Aorta Sinus of Valsalva: 3.56 2.0-3.[address] [place]: 2.63 1.7-3.4 cm Ao Asc: 3.10 2.1-3.4 cm Updated in Other Vendor System with Status of Final Cheko Hernandez MD electronically signed on 11/06/2022 1:04:47 PM with status of Final
== END ==
LOC: HO.CARD 07:50
PROVIDERS: PCP Nurse Practitioner Family; Visit Provider Nurse Practitioner Family
DX: R07.9 Chest pain, unspecified (principal)
CPT/HCPCS: 93306; 93356

== ENCOUNTER → 2022-11-14 08:48 | Outpatient (REF) | payer OTHER, SELFPAY ==
--- NOTE | 2022-11-14 08:55 | CA_ITS ---
Acquisition Time: 2022-11-14 09:15:00 Total Exercise Time: 00:10:40 Test Indications: CHEST PAIN Medications: Protocol: DANY Max HR: 162 BPM 93% of Pred: 173 BPM Max BP: 132/080 mmHG Max Work Load: 12.8 METS Exercise stress test exercise 10 min 40 sec of Dany protocol achieving 93% MPHR, with mild SOB, no chest discomfort, without arrhythmias, with normotensive response to exercise, without EKG changes. Nuclear images pending. Test reviewed with Dr. Coffman. Referred By: Blu Ocampo Overread By: Quin Butt
== END ==
LOC: HO.CARD 08:48
PROVIDERS: PCP Nurse Practitioner Family; Visit Provider Nurse Practitioner Family
DX: R07.89 Other chest pain (principal)
CPT/HCPCS: 78452; 93017; A9500

== ENCOUNTER → 2022-11-14 09:17 | Outpatient (BNV) | payer OTHER, SELFPAY | PROVIDERS: PCP Nurse Practitioner Family; Visit Provider Internal Medicine Cardiovascular Disease | DX: R06.02 Shortness of breath (principal) | CPT/HCPCS: 78452; 93016; 93018 ==

== ENCOUNTER 2022-11-28 09:17 | Outpatient (AMB) | payer OTHER, SELFPAY ==
--- NOTE | 2022-11-28 11:17 | MHC.OFFVIS ---
Intake Intake Visit Reasons: 3m follow up Allergies No Known Allergies [No Known Allergies*] Allergy (Verified 10/23/22 08:22) Medication List - Last Reconciled 11/28/22 by Robert Moctezuma MD sildenafil 100 mg PO ONCE PRN 30 days HPI HPI Comments History of Present Illness Details Donn [place] male. He is a patient of Dr. Patricio. He seen for following urologic conditions - erectile dysfunction Telemedicine Evaluation 15 min Consultation [employer] Suraj Video attempted Good improvement in erectile quality Happy to follow-up with PCP and will call if required Erectile dysfunction Prior therapy Progressive Ejaculatory disorder Good response to on demand 100 mg sildenafil PFSH Surgical History History of torn meniscus of right knee Family History Father No problems noted. Mother No problems noted. Brother No problems noted. Brother No problems noted. Sister No problems noted. Sister No problems noted. Son No problems noted. Daughter No problems noted. Maternal Grandfather Unknown family medical history Maternal Grandmother Unknown family medical history Paternal Grandfather Unknown family medical history Paternal Grandmother Unknown family medical history Social History Housing: House Alcohol intake: former Patient Tobacco Use Status: Never used Tobacco e-Cigarette/Vaping Use: Never Used Current occupational status: employed Cognitive needs: No Hearing needs: No Vision needs: No Review of Systems Const All systems reviewed & are unremarkable except as noted in HPI and below Reports no additional complaints Resp Reports no additional complaints GI Reports no additional complaints Reports as per HPI Musc Reports no additional complaints Physical Exam Telemedicine evaluation Appropriate responses Regular breathing rate and rhythm HEENT Head: Yes normal to inspection Ears: hearing grossly normal bilaterally Eyes General: appearance normal, both eyes and all related structures Neck Neck: Yes normal visual inspection Chest Chest palpation & inspection: normal inspection of the chest Resp Effort & Inspection: normal respiratory effort and able to speak in complete sentences Assessment & Plan Assessment & Plan (1) Erectile dysfunction: Code(s): N52.9 - Male erectile dysfunction, unspecified (2) Ejaculatory disorder: Code(s): N53.19 - Other ejaculatory dysfunction Plan P.r.n. Medications: Refilled sildenafil administer 60 minutes before intended activity 100 mg PO ONCE 30 days PRN 30 tabs 1RF sexual activity N52.9 - Male erectile dysfunction, unspecified Patient Instructions: Imaging studies, laboratory and physical exam results were discussed and reviewed in detail. No major barriers to patient understanding were identified. An opportunity to ask questions regarding the treatment plan was provided. All questions were answered. The patient expressed understanding and agreement with the above treatment plan. The patient is aware they should contact our office by phone for worsening of their current condition or the appearance of new urologic symptoms. Compliance is encouraged with any medications and followup testing that is ordered. It is a privilege to participate in the urologic care of your patient. If you have any questions or concerns regarding treatment for the above conditions, or other urologic issues, please do not hesitate to contact me. The office telephone contact is [phone]. This note is constructed using voice recognition software. While every effort has been made to ensure accuracy shirt closer errors may have been included. Yours sincerely, Dr Robert Moctezuma MD, [facility] - Urology Providers of Expert, Compassionate Care for the Genitourinary System Telehealth Telehealth Location of provider rendering services: practice address Location of patient: address on file Patient Identification confirmed using: Name, : Yes Telehealth method: video Patient verbally consented to treatment: Yes Patient verbally consented to billing insurance company: Yes Patient informed of any privacy concerns related to visit: Yes Coding Level of Care Code Tele Est Pt Level 3 (47727) Diagnoses Erectile dysfunction N52.9 Ejaculatory disorder N53.19
== END 2022-11-28 11:30 | disposition home or self-care (01) ==
LOC: HO.HUSH 09:17
PROVIDERS: PCP Nurse Practitioner Family; Visit Provider Urology
DX: N52.9 Male erectile dysfunction, unspecified (principal); N53.19 Other ejaculatory dysfunction
CPT/HCPCS: 99213

== ENCOUNTER → 2022-11-28 09:17 | Outpatient (BNVA) | payer OTHER, SELFPAY | PROVIDERS: PCP Nurse Practitioner Family; Visit Provider Urology ==

== ENCOUNTER 2023-04-28 07:28 | Outpatient (AMB) | payer OTHER, SELFPAY ==
--- NOTE | 2023-04-28 07:43 | MHC.PC.OV ---
Vital Signs 04/28/23 07:44 Weight 215 lb BP 112/78 Blood Pressure Location Rt brachial Position Sitting Pulse 88 Pulse Source Pulse Oximeter Pulse Oximetry (%) 97 Oxygen Delivery Method Room Air Intake Visit Reasons: PE Intake Note: Patient here physical exam/ Allergies No Known Allergies [No Known Allergies*] Allergy (Verified 10/23/22 08:22) Medication List - Last Reconciled 04/28/23 by FAN Bernal sildenafil 100 mg PO ONCE PRN 30 days Tobacco use date assessed: 10/23/22 Dental Screening Dental Screen Date: 04/28/23 Did you have a dental visit in the last 12 months?: Yes Did you have a dental problem in the last 6 months where you did not have access to dental care?: No Was dental information given to patient?: Patient has dentist HPI PE HPI Details Pt is here for a PE. Will order labs. Colon screen is up to date. Hx if diverticulitis, though denies any current symptoms. REPLACED BY [facility] Surgical History History of torn meniscus of right knee Family History Father No problems noted. Mother No problems noted. Brother No problems noted. Brother No problems noted. Sister No problems noted. Sister No problems noted. Son No problems noted. Daughter No problems noted. Maternal Grandfather Unknown family medical history Maternal Grandmother Unknown family medical history Paternal Grandfather Unknown family medical history Paternal Grandmother Unknown family medical history Social History Housing: House Alcohol intake: former Patient Tobacco Use Status: Never used Tobacco e-Cigarette/Vaping Use: Never Used Current occupational status: employed Cognitive needs: No Hearing needs: No Vision needs: No Questionnaire PHQ-9 Over the last 2 weeks, how often have you been bothered by any of the following problems? 61586 - PHQ-9 Billing: Patient declined-do not bill Source: Developed by Drs. Jacek De La Rosa, Tequila Heredia, Moise Gregory and colleagues, with an educational memo from [employer]. Thrive Questionnaire Date Thrive assessed: 04/24/22 AUDIT C Alcohol Use Questionnaire (AUDIT-C) 1. How often do you have a drink containing alcohol?: Never 3. How often do you have six or more drinks on one occasion?: Never Total Score: 0 Score Reviewed/Action Taken: No ANA-7 AMB Questionnaire ANA-7 Date ANA - 7 assessed: 04/28/23 Source: Developed by Drs. Jacek De La Rosa, Tequila Heredia, Moise Gregory and colleagues, with an educational memo from [employer]. ANA-7 Assessment Billing ANA-7 Assessment Tool: pt declined-do not bill Review of Systems Const Denies chills and Denies fever(s) Eyes Denies blurry vision ENT Denies vertigo, Denies dizziness and Denies sore throat Card Denies chest pain at rest, Denies chest pain with activity, Denies diaphoresis, Denies dyspnea and Denies dyspnea on exertion Resp Denies cough, Denies dyspnea, Denies dyspnea on exertion and Denies wheezing GI Denies abdominal pain, Denies melena, Denies hematochezia, Denies constipation, Denies diarrhea and Denies loose stools Denies hematuria Musc Denies numbness and Denies tingling Skin/Breast Denies lesions Neuro Denies vertigo, Denies dizziness, Denies numbness and Denies tingling Psych Denies anxiety, Denies depression, Denies homicidal ideation, Denies suicidal ideation and Denies other (substance abuse) Aller/Immun Denies wheezing Physical exam (Primary Care) Vital Signs: Last Vital Signs Pulse 88 04/28/23 07:44 BP 112/78 04/28/23 07:44 Pulse Ox 97 04/28/23 07:44 Oxygen Delivery Method Room Air 04/28/23 07:44 Tobacco/Smoking Status: Tobacco use Status Tobacco use date assessed 10/23/22 04/28/23 07:45 Patient Tobacco Use Status Never used Tobacco 04/28/23 07:45 e-Cigarette/Vaping Use Never Used 04/28/23 07:45 Thrive Assessment: Date of Thrive Assessment Date Thrive assessed 04/24/22 04/28/23 07:45 Const General: cooperative Nutritional Appearance: well nourished Orientation/consciousness: patient oriented x3 HENMT Head: Yes normal to inspection, Yes normocephalic and Yes atraumatic Ears: TM's normal bilaterally Eyes General: appearance normal, both eyes and all related structures Alignment and Position: alignment normal and position normal Neck Neck: Yes normal visual inspection and Yes no lymphadenopathy Thyroid: Thyroid normal Resp Effort & Inspection: normal respiratory effort Auscultation: clear to auscultation bilaterally Cardio Rate: regular rate Rhythm: regular rhythm Heart sounds: S1 normal heart sound present, S2 normal heart sound present and no murmurs GI Palpation (GI): Soft to palpation and nontender Auscultation: normal bowel sounds Male General Exam: Yes normal external exam Penis: normal penis Scrotum: scrotum normal, testes descended bilaterally and no inguinal hernias Testes: no testicular mass Skin Rashes: no rashes Neuro General: patient oriented x3, moves all extremities, no focal motor deficits and deep tendon reflexes 2+ bilaterally Romberg Test: Negative Psych Appearance: grossly normal Mental Status: mental status grossly normal Speech and movement: Normal speech and movement present Affect: normal affect Attitude: cooperative Thought process: Normal thought process present Thought content: Normal thought content present Insight: Good insight present (Psych) Judgement: Good judgement present (Psych) Assessment and Plan Assessment & Plan (1) Physical exam: Code(s): Z00.00 - Encounter for general adult medical examination without abnormal findings Plan: Labs ordered (2) Diverticulitis: Code(s): K57.92 - Diverticulitis of intestine, part unspecified, without perforation or abscess without bleeding Plan: Continue to monitor Plan The patient agreed to the use of a pesticide use medical coordinator for this encounter. Scribed for FAN Humphries by Whit Archibald pesticide use medical coordinator, on 04/28/2023 at 07:55 EST. Orders: Orders Complete Blood Count Auto Diff Today Z00.00 - Encounter for general adult medical examination without abnormal findings TSH reflex Free T4 Today Z00.00 - Encounter for general adult medical examination without abnormal findings UA CC w/rflx Micro + Cult Today Z00.00 - Encounter for general adult medical examination without abnormal findings Lipid Panel Today Z00.00 - Encounter for general adult medical examination without abnormal findings Comprehensive [facility]. Panel Fast Today Z00.00 - Encounter for general adult medical examination without abnormal findings Coding Level of Care Code Est Pt Prev Care 40-64y(91214) Diagnoses Physical exam Z00.00 Diverticulitis K57.92
[2023-04-28 07:44] VITALS: BP 112/78; PULSE 88; O2SAT 97
== END 2023-04-28 08:05 | disposition home or self-care (01) ==
PROVIDERS: PCP Nurse Practitioner Family; Visit Provider Nurse Practitioner Family
DX: Z00.00 Encounter for general adult medical examination without abnormal findings (principal); K57.92 Diverticulitis of intestine, part unspecified, without perforation or abscess without bleeding
CPT/HCPCS: 99396

== ENCOUNTER 2023-04-28 08:06 | Outpatient (REF) | payer OTHER, SELFPAY ==
[2023-04-28 11:37] LABS: MANUAL DIFF FLAG NO
[2023-04-28 11:39] LABS: Basophils Absolute Auto 0.1 X10*3/uL (0.0-0.2); Basophils Percent Auto 0.4 % (0-2); Eosinophils Percent Auto 0.2 % (0-4); Hematocrit 43.3 % (42.0-52.0); Hemoglobin 14.3 g/dl (14.0-18.0); Imm Gran Abs Auto 0.04 X10*3/uL (0.00-0.03); Imm Gran Pct Auto 0.4 % (0.0-0.4); Lymphocytes Absolute Auto 1.6 X10*3/uL (1.2-4.9); Lymphocytes Percent Auto 13.8 % (20-40); Mean Corpuscular Hemoglobin 30.2 pg (27.0-33.0); Mean Corpuscular Volume 91.5 fL (80.0-98.0); Mean Platelet Volume 10.8 fL (9.4-12.4); Monocytes Absolute Auto 0.6 X10*3/uL (0.1-1.2); Monocytes Percent Auto 5.7 % (2-11); Neutrophils Absolute Auto 8.9 x10*3/uL (2.0-8.3); Neutrophils Percent Auto 79.5 % (45-73); Platelet Count 231 X10*3/uL (160-400); Red Blood Count 4.73 X10*6/uL (4.60-5.80); Red Cell Distribution Width 12.8 % (11.0-16.0); White Blood Count 11.2 X10*3/uL (4.8-10.8)
[2023-04-28 11:46] LABS: Appearance Urine Clear; Color Urine Dark Yellow; Glucose Urine UA Negative (Negative); Leukocyte Esterase Urine Negative (Negative); Nitrite Urine Negative (Negative); PH 5.5 (5.0-9.0); Specific Gravity - Urine 1.025 (1.005-1.025); Urine Blood Negative (Negative); Urine Ketones Trace mg/dL (Negative); Urine Protein Negative (Neg-Trace)
[2023-04-28 12:27] LABS: Alanine Aminotransferase 22 U/L (0-40); Albumin Level 4.3 g/dL (3.5-5.0); Alkaline Phosphatase 55 U/L (39-117); Anion Gap 14 (12-20); Aspartate Amino Transferase 27 U/L (5-37); Bilirubin Total 1.4 mg/dL (0.0-1.0); Blood Urea Nitrogen 13 mg/dL (9-16); Calcium 9.6 mg/dL (8.4-10.2); Carbon Dioxide 24 mmol/L (22-29); Chloride 105 mmol/L (96-108); Cholesterol 154 mg/dL (<200); Estimated Glomerular Filt Rate > 60; Glucose Fasting 114 mg/dL (60-99); HDL Cholesterol 48 mg/dL (>40); LDL Cholesterol Calculated 93 mg/dL (<100); Potassium 3.8 mmol/L (3.3-5.1); Sodium 139 mmol/L (135-145); Total Protein 7.4 g/dL (6.5-8.0); Triglycerides 68 mg/dL (<150)
== END 2023-04-28 08:07 | disposition home or self-care (01) ==
LOC: HO.HMGCLDS 08:06
PROVIDERS: PCP Nurse Practitioner Family; Visit Provider Nurse Practitioner Family
DX: Z00.00 Encounter for general adult medical examination without abnormal findings (principal)
CPT/HCPCS: 36415; 80053; 80061; 81003; 84443; 85025

== ENCOUNTER 2023-06-10 07:44 | Outpatient (REF) | payer OTHER, SELFPAY ==
[2023-06-10 10:21] LABS: MANUAL DIFF FLAG NO
[2023-06-10 10:42] LABS: Basophils Percent Auto 0.7 % (0-2); Eosinophils Absolute Auto 0.1 X10*3/uL (0.0-0.4); Eosinophils Percent Auto 0.9 % (0-4); Hematocrit 42.1 % (42.0-52.0); Hemoglobin 14.2 g/dl (14.0-18.0); Imm Gran Abs Auto 0.02 X10*3/uL (0.00-0.03); Imm Gran Pct Auto 0.4 % (0.0-0.4); Lymphocytes Absolute Auto 1.5 X10*3/uL (1.2-4.9); Lymphocytes Percent Auto 26.9 % (20-40); Mean Corpuscular HGB Conc 33.7 g/dl (31.0-36.0); Mean Corpuscular Hemoglobin 30.3 pg (27.0-33.0); Mean Corpuscular Volume 89.8 fL (80.0-98.0); Mean Platelet Volume 10.2 fL (9.4-12.4); Monocytes Absolute Auto 0.3 X10*3/uL (0.1-1.2); Monocytes Percent Auto 5.7 % (2-11); Neutrophils Absolute Auto 3.6 x10*3/uL (2.0-8.3); Neutrophils Percent Auto 65.4 % (45-73); Platelet Count 242 X10*3/uL (160-400); Red Blood Count 4.69 X10*6/uL (4.60-5.80); Red Cell Distribution Width 12.5 % (11.0-16.0); White Blood Count 5.5 X10*3/uL (4.8-10.8)
== END 2023-06-10 07:45 | disposition home or self-care (01) ==
LOC: HO.HMGCLDS 07:44
PROVIDERS: PCP Nurse Practitioner Family; Visit Provider Nurse Practitioner Family
DX: D72.829 Elevated white blood cell count, unspecified (principal)
CPT/HCPCS: 36415; 85025

== ENCOUNTER 2024-04-21 12:41 | Outpatient (AMB) | payer OTHER, SELFPAY ==
[2024-04-21 13:39] VITALS: BP 142/90; PULSE 100; TEMP 36.4; O2SAT 97; BMI 29.3
--- NOTE | 2024-04-21 13:39 | AM.OFFWIN_ITS ---
Intake Vital Signs 04/21/24 13:39 Height 5 ft 10 in Weight 204 lb BMI 29.3 BP 142/90 H Blood Pressure Location Rt brachial Position Sitting Pulse 100 Pulse Source Pulse Oximeter Temp 97.6 F Temp Source Temporal Artery Scan Pulse Oximetry (%) 97 Oxygen Delivery Method Room Air Intake Visit Reasons: EP Lt eye pain/scratching feeling [phone] Intake Note: Pt presents to the office today for c/o left eye pain x2 weeks. Pt states it feels like there is sand in his eye . 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 Patient Tobacco Use Status: Never used Tobacco Allergies No Known Allergies [No Known Allergies*] Allergy (Verified 04/21/24 13:41) HPI HPI Comments History of Present Illness Details History of Present Illness The patient is a 48-year-old male presenting with left eye irritation and suspected corneal abrasion. He reports experiencing left eye discomfort persisting for two weeks. 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 Initially expecting the irritation to resolve spontaneously, the patient noted persistent symptoms. He describes the irritation as more pronounced than pain, marked by occasional blurry vision when rubbing the eye. no contact lenses are used. He reports the irritation seems to improve slightly by the afternoon but worsens upon waking in the morning. Self-examination showed mild redness localized to the eye's corner, though not severe. No previous interventions were employed before seeking medical attention. Physical Exam General: Cooperative, healthy appearing, comfortable, no acute distress and well developed Orientation: Patient oriented x3 Limitations: No limitations Head: Normal to inspection Ears: Hearing grossly normal bilaterally Nose: Normal External nose present Face and sinus: ormal facial exam Eyes: Left eye injection noted. Under fluoroscein exam, 2 small corneal abrasions noted. Neck: Normal visual inspection and Yes full ROM Respiratory: Normal respiratory effort and able to speak in complete sentences. Skin: No rashes or lesions noted Neuro: Patient oriented x3 Extremities: Normal to inspection [facility] Surgical History History of torn meniscus of right knee Family History Father No problems noted. Mother No problems noted. Brother No problems noted. Brother No problems noted. Sister No problems noted. Sister No problems noted. Son No problems noted. Daughter No problems noted. Maternal Grandfather Unknown family medical history Maternal Grandmother Unknown family medical history Paternal Grandfather Unknown family medical history Paternal Grandmother Unknown family medical history Social History (Reviewed 04/28/23 @ 07:55 by Blu Ocampo [facility] Housing: House Alcohol intake: former Patient Tobacco Use Status: Never used Tobacco e-Cigarette/Vaping Use: Never Used Current occupational status: employed Cognitive needs: No Hearing needs: No Vision needs: No Review of Systems Const All systems reviewed & are unremarkable except as noted in HPI and below Physical Exam Vital Signs: Last Vital Signs Temp 97.6 F 04/21/24 13:39 Pulse 100 04/21/24 13:39 BP 142/90 H 04/21/24 13:39 Pulse Ox 97 04/21/24 13:39 Oxygen Delivery Method Room Air 04/21/24 13:39 BMI result Body Mass Index 29.3 Office Procedures Fluorescein eye exam Details: I administered numbing 2 tetracaine numbing drops to the left eye, followed by fluoroscein dye and an ocular examination under a blue light with dye to confirm the presence of abrasion, curved 5 o'clock to 7 o'clock position and pinpoint in central eye/pupil. Assessment & Plan Assessment & Plan (1) Corneal abrasion, left: Code(s): S05.02XA - Injury of conjunctiva and corneal abrasion without foreign body, left eye, initial encounter Qualifiers: Encounter type: initial encounter Qualified Code(s): S05.02XA - Injury of conjunctiva and corneal abrasion without foreign body, left eye, initial encounter Plan: I have prescribed an ophthalmic antibiotic drop to be applied four times a day while awake for 5 days to aid in the healing process. The patient was advised that if he experiences any changes in vision, such as increased blurriness, he should seek immediate evaluation at an emergency department or consult an banding machine operator. Patient was informed and verbally consented to the use of an ambient scribe for clinic note documentation during this visit. Medications: New polymyxin B sulf-trimethoprim 10,000 unit- 1 mg/mL Apply 1 drop to left eye, 4 times a day, while awake 1 drp ophthalmic (eye) QID 5 days 10 mL 0RF Coding Level of Care Code Est Pt Level 3 (24992) Diagnoses Abrasion of left cornea, initial encounter S05.02XA Encounter type: initial encounter
== END 2024-04-21 14:33 | disposition home or self-care (01) ==
PROVIDERS: PCP Nurse Practitioner Family; Visit Provider Physician Assistant
DX: S05.02XA Injury of conjunctiva and corneal abrasion without foreign body, left eye, initial encounter (principal)

== ENCOUNTER → 2024-04-21 12:41 | Outpatient (BNVA) | payer OTHER, SELFPAY | PROVIDERS: PCP Nurse Practitioner Family; Visit Provider Physician Assistant ==

== ENCOUNTER 2024-05-18 15:18 | Outpatient (AMB) | payer OTHER, SELFPAY ==
[2024-05-18 15:24] VITALS: BP 118/80; PULSE 82; O2SAT 95; BMI 29.6
--- NOTE | 2024-05-18 15:24 | MHC.PC.OV ---
Vital Signs 05/18/24 15:24 Height 5 ft 10 in Weight 206 lb BMI 29.6 BP 118/80 Blood Pressure Location Rt brachial Position Sitting Pulse 82 Pulse Source Pulse Oximeter Pulse Oximetry (%) 95 Intake Visit Reasons: Annual PE ~ R/S form 05/13/24 Intake Note: pt is here for annual exam Software Configuration Specialist Required: No Accompanied by: Self / Same As Patient Allergies No Known Allergies [No Known Allergies*] Allergy (Verified 05/18/24 15:25) Medication List - Last Reconciled 05/18/24 by Blu Ocampo [facility]- sildenafil 100 mg PO ONCE PRN 30 days Tobacco use date assessed: 05/18/24 Dental Screening Dental Screen Date: 05/18/24 Did you have a dental visit in the last 12 months?: Yes Did you have a dental problem in the last 6 months where you did not have access to dental care?: No Was dental information given to patient?: Patient has dentist HPI Annual PE ~ R/S form 05/13/24 HPI Details History of Present Illness The patient is a 49-year-old male presenting for a routine physical examination. He reports no active symptoms or chronic medical conditions requiring attention. The patient denies experiencing chest pain, shortness of breath, nausea, vomiting, diarrhea, constipation, or blood in the stool. Additionally, he denies any headaches, blurred vision, anxiety, depression, suicidal ideation, or homicidal ideation. He has a history of a colon screening which is up to date. There was no indication of ongoing disease processes or any acute symptoms requiring immediate management during this visit. Health Maintenance - Colon screening is up to date - Refused flu vaccine today - Labs are due and will be ordered for further screening Social History Review of Systems - Cardiovascular: Denies chest pain - Respiratory: Denies shortness of breath - Gastrointestinal: Denies nausea, vomiting, diarrhea, constipation, blood in stool - Neurological: Denies headaches, blurred vision - Psychiatric: Denies anxiety, depression, suicidal ideation, homicidal ideation -denies any urinary symptoms Physical Exam General: Cooperative, healthy appearing, comfortable, no acute distress and well developed Orientation: Patient oriented x3 Limitations: No limitations Head: Normal to inspection Ears: Hearing grossly normal bilaterally, TMs intact bilaterally Nose: Normal external nose present Face and sinus: Normal facial exam Eyes: Appearance normal, both eyes and all related structures Neck: Supple, normal visual inspection and Yes full ROM Respiratory: Normal respiratory effort and able to speak in complete sentences. Clear to auscultation bilaterally Cardiovascular: Regular rate and rhythm. Normal S1 and S2 GI: Normal to inspection. Soft to palpation and nontender. Bowel sounds present Skin: No rashes or lesions noted Neuro: Patient oriented x3 Extremities: Normal to inspection, no edema Results Plan - Place laboratory orders to complete routine screening - Discussed vaccination options; patient declined flu vaccine Patient was informed and verbally consented to the use of an ambient scribe for clinic note documentation during this visit. Discussion Notes During the visit, I discussed with the patient the importance of maintaining up-to-date vaccination status and routine health screenings. Despite this, the patient opted against receiving the influenza vaccine. We reviewed the necessity for regular laboratory evaluations as part of ongoing health maintenance, and accordingly, I will facilitate the appropriate laboratory orders. No active medical issues were identified that required specific management. The patient was receptive to health maintenance discussions and agreed to follow the plan for laboratory assessments. Patient Instructions - Follow up with laboratory tests as ordered - Consider receiving the flu vaccine in the future to maintain vaccination coverage - Continue routine health maintenance and screenings as per guidelines [facility] Surgical History History of torn meniscus of right knee Family History Father No problems noted. Mother No problems noted. Brother No problems noted. Brother No problems noted. Sister No problems noted. Sister No problems noted. Son No problems noted. Daughter No problems noted. Maternal Grandfather Unknown family medical history Maternal Grandmother Unknown family medical history Paternal Grandfather Unknown family medical history Paternal Grandmother Unknown family medical history Social History Housing: House Alcohol intake: former Patient Tobacco Use Status: Never used Tobacco e-Cigarette/Vaping Use: Never Used Current occupational status: employed Cognitive needs: No Hearing needs: No Vision needs: No Questionnaire PHQ-9 Over the last 2 weeks, how often have you been bothered by any of the following problems? 1. Little interest or pleasure in doing things: not at all 2. Feeling down, depressed, or hopeless: not at all 3. Trouble falling or staying asleep, or sleeping too much: not at all 4. Feeling tired or having little energy: not at all 5. Poor appetite or overeating: not at all 6. Feeling bad about yourself - or that you are a failure or have let yourself or your family down: not at all 7. Trouble concentrating on things, such as reading the newspaper or watching television: not at all 8. Moving or speaking so slowly that other people could have noticed. Or the opposite - being so fidgety or restless that you have been moving around a lot more than usual: not at all 9. Thoughts that you would be better off or of hurting yourself in some way: not at all Total score: 0 Depression Screening Interpretation: Negative Depression Screening Done: Yes 26508 - PHQ-9 Billing: Yes Source: Developed by Drs. Jacek De La Rosa, Tequila Heredia, Moise Gregory and colleagues, with an educational memo from [employer]. Thrive Questionnaire Date Thrive assessed: 05/18/24 I am a: Patient What is your living situation today?: I have a steady place to live Within the past 12 months, did the food you bought not last and you didn't have the money to get more?: Never true Within the past 12 months, did you worry whether your food would run out before you got money to buy more?: Never true Do you have trouble paying for medicines?: No Do you have trouble getting transportation to medical appointments?: No Do you have trouble paying your heating and electricity bill?: No Do you have trouble taking care of your child, family member or friend?: No Do you have trouble with day-to-day activities such as bathing, preparing meals, shopping, managing finances, etc.?: No Are you currently unemployed and looking for a job?: No Are you interested in more education?: No Please select the resources that you would like help with: None Currently or been in a relationship where the following occur: No concerns reported THRIVE Score: 0 AUDIT C Alcohol Use Questionnaire (AUDIT-C) 1. How often do you have a drink containing alcohol?: Never 3. How often do you have six or more drinks on one occasion?: Never Total Score: 0 Score Reviewed/Action Taken: Yes ANA-7 AMB Questionnaire ANA-7 Date ANA - 7 assessed: 05/18/24 Feeling nervous, anxious, or on edge: 0 = Not at all Not being able to stop or control worryin = Not at all Worrying too much about different things: 0 = Not at all Trouble relaxin = Not at all Being so restless that it is hard to sit still: 0 = Not at all Becoming easily annoyed or irritable: 0 = Not at all Feeling afraid as if something awful might happen: 0 = Not at all Total ANA-7 score (0-4 normal; 5-9 mild; 10-14 moderate; 15-21 severe): 0 Source: Developed by Drs. Jacek De La Rosa, Tequila Heredia, Moise Gregory and colleagues, with an educational memo from [employer]. ANA-7 Assessment Billing ANA-7 Assessment Tool: ANA-7 Assessment 60680 Physical exam (Primary Care) Vital Signs: Last Vital Signs Pulse 82 05/18/24 15:24 BP 118/80 05/18/24 15:24 Pulse Ox 95 05/18/24 15:24 BMI result Body Mass Index 29.6 Tobacco/Smoking Status: Tobacco use Status Tobacco use date assessed 05/18/24 05/18/24 15:26 Patient Tobacco Use Status Never used Tobacco 05/18/24 15:26 e-Cigarette/Vaping Use Never Used 05/18/24 15:26 PHQ-9: PHQ-9 Score PHQ-9: Total score 0 05/18/24 15:26 Depression Screening Interpretation: Negative Thrive Assessment: Date of Thrive Assessment Date Thrive assessed 05/18/24 05/18/24 15:26 Currently or been in a relationship where the following occur: No concerns reported Coding Level of Care Code Est Pt Prev Care 40-64y(41117) Diagnoses Physical exam Z00.00 Screening for prostate cancer Z12.5 Additional Codes ANA-7 Assessment Billing - ANA-7 Assessment Tool: ANA-7 Assessment 23838 ([id number]) PHQ-9 - 25023 - PHQ-9 Billing: Yes ([id number]) Assessment & Plan Assessment & Plan (1) Physical exam: Code(s): Z00.00 - Encounter for general adult medical examination without abnormal findings Category: Medical (2) Screening for prostate cancer: Code(s): Z12.5 - Encounter for screening for malignant neoplasm of prostate Category: Medical Plan . Orders: Orders Comprehensive Lorida. Panel Fast Today Z00.00 - Encounter for general adult medical examination without abnormal findings UA CC w/rflx Micro + Cult Today Z00.00 - Encounter for general adult medical examination without abnormal findings Lipid Panel Today Z00.00 - Encounter for general adult medical examination without abnormal findings Complete Blood Count Auto Diff Today Z00.00 - Encounter for general adult medical examination without abnormal findings TSH reflex Free T4 Today Z00.00 - Encounter for general adult medical examination without abnormal findings Prostate Specific Antigen Scr Today Z12.5 - Encounter for screening for malignant neoplasm of prostate
== END 2024-05-18 16:06 | disposition home or self-care (01) ==
PROVIDERS: PCP Nurse Practitioner Family; Visit Provider Nurse Practitioner Family
DX: Z00.00 Encounter for general adult medical examination without abnormal findings (principal); Z12.5 Encounter for screening for malignant neoplasm of prostate

== ENCOUNTER → 2024-05-18 15:18 | Outpatient (BNVA) | payer OTHER, SELFPAY | PROVIDERS: PCP Nurse Practitioner Family; Visit Provider Nurse Practitioner Family | DX: Z00.00 Encounter for general adult medical examination without abnormal findings (principal) | CPT/HCPCS: 96127 ==

== ENCOUNTER 2024-05-22 06:51 | Outpatient (REF) | payer OTHER, SELFPAY ==
[2024-05-22 11:19] LABS: MANUAL DIFF FLAG NO
[2024-05-22 11:26] LABS: Appearance Urine Clear; Color Urine Yellow; Glucose Urine UA Negative (Negative); Leukocyte Esterase Urine Negative (Negative); Nitrite Urine Negative (Negative); Urine Blood Negative (Negative); Urine Ketones Negative (Negative); Urine Protein Negative (Neg-Trace)
[2024-05-22 11:36] LABS: Basophils Absolute Auto 0.1 X10*3/uL (0.0-0.2); Basophils Percent Auto 0.9 % (0-2); Eosinophils Absolute Auto 0.1 X10*3/uL (0.0-0.4); Eosinophils Percent Auto 1.1 % (0-4); Hematocrit 44.2 % (42.0-52.0); Hemoglobin 14.8 g/dl (14.0-18.0); Imm Gran Abs Auto 0.01 X10*3/uL (0.00-0.03); Imm Gran Pct Auto 0.2 % (0.0-0.4); Lymphocytes Absolute Auto 1.5 X10*3/uL (1.2-4.9); Lymphocytes Percent Auto 26.3 % (20-40); Mean Corpuscular HGB Conc 33.5 g/dl (31.0-36.0); Mean Corpuscular Hemoglobin 30.6 pg (27.0-33.0); Mean Corpuscular Volume 91.5 fL (80.0-98.0); Mean Platelet Volume 10.1 fL (9.4-12.4); Monocytes Absolute Auto 0.5 X10*3/uL (0.1-1.2); Monocytes Percent Auto 8.2 % (2-11); Neutrophils Absolute Auto 3.6 x10*3/uL (2.0-8.3); Neutrophils Percent Auto 63.3 % (45-73); Platelet Count 258 X10*3/uL (160-400); Red Blood Count 4.83 X10*6/uL (4.60-5.80); Red Cell Distribution Width 12.7 % (11.0-16.0); White Blood Count 5.6 X10*3/uL (4.8-10.8)
[2024-05-22 11:50] LABS: Alanine Aminotransferase 19 U/L (0-40); Albumin Level 4.5 g/dL (3.5-5.0); Alkaline Phosphatase 63 U/L (39-117); Anion Gap 8 (12-20); Aspartate Amino Transferase 23 U/L (5-37); Bilirubin Total 0.7 mg/dL (0.0-1.0); Blood Urea Nitrogen 13 mg/dL (9-16); Calcium 9.4 mg/dL (8.4-10.2); Carbon Dioxide 30 mmol/L (22-29); Chloride 109 mmol/L (96-108); Cholesterol 174 mg/dL (<200); Estimated Glomerular Filt Rate > 60; Glucose Fasting 98 mg/dL (60-99); HDL Cholesterol 49 mg/dL (>40); LDL Cholesterol Calculated 114 mg/dL (<100); Potassium 5.2 mmol/L (3.3-5.1); Sodium 142 mmol/L (135-145); Total Protein 7.5 g/dL (6.5-8.0); Triglycerides 57 mg/dL (<150)
[2024-05-22 11:58] LABS: Prostate Specific Antigen Scr 0.68 ng/mL (<0.05-4.0)
[2024-05-22 12:05] LABS: TSH reflex Free T4 1.06 uIU/mL (0.32-4.0)
== END 2024-05-22 06:52 | disposition home or self-care (01) ==
LOC: HO.HMGCLDS 06:51
PROVIDERS: PCP Nurse Practitioner Family; Visit Provider Nurse Practitioner Family
DX: Z00.00 Encounter for general adult medical examination without abnormal findings (principal); Z12.5 Encounter for screening for malignant neoplasm of prostate
CPT/HCPCS: 36415; 80053; 80061; 81003; 84153; 84443; 85025

== ENCOUNTER 2024-06-07 06:06 | Outpatient (REF) | payer OTHER, SELFPAY ==
[2024-06-07 10:53] LABS: Anion Gap 13 (12-20); Carbon Dioxide 25 mmol/L (22-29); Chloride 105 mmol/L (96-108); Potassium 4.4 mmol/L (3.3-5.1); Sodium 139 mmol/L (135-145)
== END 2024-06-07 06:07 | disposition home or self-care (01) ==
LOC: HO.HMGCLDS 06:06
PROVIDERS: PCP Nurse Practitioner Family; Visit Provider Nurse Practitioner Family
DX: E87.5 Hyperkalemia (principal)
CPT/HCPCS: 36415; 80051

== ENCOUNTER 2024-07-09 12:50 | Outpatient (REF) | payer OTHER, SELFPAY ==
--- NOTE | ~2024-07-09 | XR_ITS ---
EXAMINATION: XR CERVICAL SPINE CLINICAL INFORMATION: M54.2 - Cervicalgia COMPARISON: None available. TECHNIQUE: 2 views of the cervical spine were obtained. FINDINGS: There is normal cervical lordosis. There is loss of C6/7 disc height with ventral spondylosis. Rest the disc heights are normal. The vertebral heights are normal. There is grade 1 anterolisthesis C5 over C6 There is left facet joint arthropathy at C3-4, C4-5 and bilaterally C5-6 disc levels. No aggressive lytic or sclerotic process seen. The prevertebral and paravertebral soft tissues are normal. XR/XR cervical spine 2V IMPRESSION: Degenerative disc changes C6 testis 7 disc levels with ventral spondylosis. Grade 1 anterolisthesis C5 over C6. Electronically signed by: Moo Patino MD 07/12/2024 10:38 AM CAL MCKENNA
== END 2024-07-09 12:51 | disposition home or self-care (01) ==
LOC: HO.HMGCX 12:50
PROVIDERS: PCP Nurse Practitioner Family; Visit Provider Nurse Practitioner Family
DX: M54.2 Cervicalgia (principal)
CPT/HCPCS: 72040

== ENCOUNTER → 2024-07-09 13:02 | Outpatient (BNV) | payer OTHER, SELFPAY | PROVIDERS: PCP Nurse Practitioner Family; Visit Provider Radiology Diagnostic Radiology | DX: M50.322 Other cervical disc degeneration at C5-C6 level (principal); M47.812 Spondylosis without myelopathy or radiculopathy, cervical region | CPT/HCPCS: 72040 ==

== ENCOUNTER 2024-08-10 15:00 | Outpatient (RCR) | payer OTHER, SELFPAY ==
--- NOTE | 2024-07-27 14:46 | MHC.PT.EP ---
[facility] [place] Office [place] Office [place] Office [address] Gael Azevedo [address] [phone] F: [phone] F: [phone] F: [phone] F: [phone] Physical Therapy Plan of Care Date of Evaluation: 07/27/24 Date of Surgery: n/a Diagnosis: cervicalgia Assessment: Patient is a 49 year old male presenting to PT with complaints of pain in his neck. Pt reports onset of pain began about 2-4 due to insidious onset. He presents today with impairments in pain, ROM, posture, strength, decreased muscle length. 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 Pt expresses prison goal of reducing pain, and is motivated to work towards this in PT. Clinical presentation today is most consistent with signs and sx associated with neck pain and pt will benefit from skilled PT 2 week x 4 weeks to address the following problems and impairments noted upon evaluation: pain, ROM, posture, strength, decreased muscle length. These problems limit the patient with the following functional activities: driving, sitting, watching tv, work. The prescribed treatment plan of care is medically necessary. Co-morbidities of none were identified and taken into considerations of plan of care. Pt was educated on HEP, role of PT, prognosis, POC. Frequency and Duration: The patient will be seen 2 x week x 4 weeks Short Term Goals: Pt will demonstrate ability to move through available cervical ROM in 2 weeks. Pt will demonstrate less numbness/tingling in his UT in 2 weeks. Pt will demonstrate improved posture as evidence by min to no cues for correction during the session in 2 weeks. [employer] Goals: Pt will demonstrate improved NDI score by 10% in 4 weeks for improved functional mobility. Pt will demonstrate ability to work a full day with less pain in 4 weeks for return to PLOF. Treatment Plan: Modalities to reduce pain, spasms and effusion. Manual therapy to restore motion and function. Therapeutic exercise to improve strength and flexibility. Neuromuscular re-education for posture and balance. Therapeutic activities to return to functional activities of daily living. Electronically signed by: Lisette Calderón, PT, DPT, ATC Please sign and return to therapist. Thank you for your referral.
--- NOTE | 2024-08-10 16:18 | MHC.PT.DC ---
[facility] [place] [facility] [place] [facility] [place] Office [address] Gael Azevedo [address] [phone] F: [phone] F: [phone] F: [phone] F: [phone] Physical Therapy Discharge Report Diagnosis: cervicalgia Date of Surgery: n/a Date of Evaluation: 07/27/24 Date of Discharge: 08/10/24 Treatments to Date: 5 Cancellations to Date: 3 No Shows to Date: 0 Discharge Status: Patient Elected to Stop Recommend MD Follow-up Discharge Summary: 08/10/2024: Continues as above. Still moves at fast pace and needing cues for proper form with exercises. No change in pain noted before, during, or after the session. Advised pt to continue with HEP at home as tolerated. At the end of the session while wrapping up pt became confrontational towards this PT stating he knows his pain isn't going to get better. He has stated this on multiple other occasions to this PT as well as the WELDING SYSTEMS AND EQUIPMENT REPAIRER. Pt stating he is here for MRI and states maybe I need stem cell therapy . This PT advised pt to see specialist to discuss stem cell as well as what imaging would be appropriate for this intervention. Pt became angry and got very close to this PT stating he hasn't seen any doctor and that he is only here because he sent his doctor a message and apparently a nurse told him he had to come here. Again advised pt to reach out to his doctor to make an appointment and pt continued to become more angry despite this PT trying to diffuse the situation. This PT ultimately had to ask the pt to leave as his appointment was over and he would not leave. Pt patted this PT on the shoulder as he walked out. Pt then came back into the building and asked the lockstitch front edge tape sewer to cancel his last 3 remaining appointments with no reason given. Electronically signed by: Lisetet Calderón, PT, DPT, ATC Please sign and return to therapist. Thank you for your referral.
== END 2024-08-10 16:18 | disposition home or self-care (01) ==
LOC: HO.PTCHIC 15:00
PROVIDERS: PCP Nurse Practitioner Family; Visit Provider Nurse Practitioner Family
DX: M54.2 Cervicalgia (principal)
CPT/HCPCS: 97110; 97140; 97161